=== PATIENT | female | born 1980 | race Caucasian/White ===

== ENCOUNTER 2021-06-10 13:00 | Outpatient (RCR) | payer MEDICARE, MEDICAID, SELFPAY | END 2021-06-15 23:59 | disposition home or self-care (01) | LOC: CR 13:00 | PROVIDERS: PCP Family Medicine; Visit Provider Family Medicine | DX: Z51.89 Encounter for other specified aftercare (principal); Z95.811 Presence of heart assist device; I50.20 Unspecified systolic (congestive) heart failure; I25.5 Ischemic cardiomyopathy; Z76.82 Awaiting organ transplant status | CPT/HCPCS: S9472 ==

== ENCOUNTER 2021-07-15 14:00 | Outpatient (RCR) | payer MEDICARE, MEDICAID, SELFPAY | END 2021-07-16 23:59 | disposition home or self-care (01) | LOC: CR 14:00 | PROVIDERS: PCP Family Medicine; Visit Provider Family Medicine | DX: Z51.89 Encounter for other specified aftercare (principal); I50.20 Unspecified systolic (congestive) heart failure; Z95.0 Presence of cardiac pacemaker; I25.5 Ischemic cardiomyopathy | CPT/HCPCS: S9472 ==

== ENCOUNTER 2021-08-12 13:00 | Outpatient (RCR) | payer MEDICARE, MEDICAID, SELFPAY | END 2021-08-15 23:59 | disposition home or self-care (01) | LOC: CR 13:00 | PROVIDERS: PCP Family Medicine; Visit Provider Family Medicine | DX: Z51.89 Encounter for other specified aftercare (principal); Z95.0 Presence of cardiac pacemaker | CPT/HCPCS: S9472 ==

== ENCOUNTER 2021-09-11 13:00 | Outpatient (RCR) | payer MEDICARE, MEDICAID, SELFPAY | END 2021-09-15 23:59 | disposition home or self-care (01) | LOC: CR 13:00 | PROVIDERS: PCP Family Medicine; Visit Provider Family Medicine | DX: Z51.89 Encounter for other specified aftercare (principal); Z95.811 Presence of heart assist device; Z76.82 Awaiting organ transplant status | CPT/HCPCS: S9472 ==

== ENCOUNTER 2021-10-14 13:00 | Outpatient (RCR) | payer MEDICARE, MEDICAID, SELFPAY | END 2021-10-15 23:59 | disposition home or self-care (01) | LOC: CR 13:00 | PROVIDERS: PCP Family Medicine; Visit Provider Family Medicine | DX: Z51.89 Encounter for other specified aftercare (principal); Z95.811 Presence of heart assist device; Z76.82 Awaiting organ transplant status | CPT/HCPCS: S9472 ==

== ENCOUNTER 2021-10-16 14:31 | Outpatient (RCR) | payer MEDICARE, SELFPAY | END 2021-11-15 23:59 | disposition home or self-care (01) | LOC: CR 14:31 | PROVIDERS: PCP Family Medicine; Visit Provider Family Medicine ==